=== PATIENT | female | born 1985 | race Caucasian/White ===

== ENCOUNTER 2023-04-29 08:39 | Emergency (ER) | payer SELFPAY ==
[2023-04-29] MEDS ORDERED: Ipratropium/Albuterol 3 ML NEB ONE (09:08)
[2023-04-29 10:28] LABS: SARS-CoV-2 NAA Rapid Test Not Detected (NotDetected)
[2023-04-29] MEDS ORDERED: methylPREDNISolone Sod Succ/PF 125 MG/2 ML VIAL ONE (10:56)
== END 2023-04-29 12:30 | disposition home or self-care (01) ==
LOC: CSHERS 08:39
DX: J45.901 Unspecified asthma with (acute) exacerbation (principal); Z20.822 Contact with and (suspected) exposure to COVID-19
CPT/HCPCS: 71045; 94640; 94760; 96372; J2930; J7611; J7620

== ENCOUNTER 2024-10-03 16:15 | Emergency (ER) | payer BC ==
[2024-10-03 18:11] LABS: Bilirubin Neg (Negative); Blood, Urine Negative (Negative); Clarity Clear (Clear); Glucose, Urine (Dipstick) Normal (Negative); Ketone, Urine Negative (Negative); Leukocyte Negative (Negative); Nitrite Negative (Negative); Protein, Urine (Dipstick) 15 mg/dl (Neg-Trace); Urobilinogen Normal mg/dL (Less than 2)
[2024-10-03 18:23] LABS: Bacteria/HPF None Seen HPF (None Seen); CAUTI Indications for Culture Pelvic or flank pain; RBC/HPF None Seen HPF (0-3); Squamous Epithelial 0-3 HPF (0-3); WBC/HPF None Seen HPF (0-3)
[2024-10-03] MEDS ORDERED: Ketorolac Tromethamine 30 MG (1 mL) VIAL ONE (18:23)
[2024-10-03 18:24] LABS: Urine Culture Reflex No No
== END 2024-10-03 18:29 | disposition home or self-care (01) ==
LOC: CSHERS 16:15
DX: S39.012A Strain of muscle, fascia and tendon of lower back, initial encounter (principal); X58.XXXA Exposure to other specified factors, initial encounter
CPT/HCPCS: 81001; 96372; 99283; J1885